=== PATIENT | male | born 1955 | race Caucasian/White ===

== ENCOUNTER 2024-10-15 16:28 | Outpatient (CLI) | payer MEDICARE, OTHER, SELFPAY ==
[2024-10-15 11:03] LABS: Abs Immature Grans 0.02 10^3/uL (0.0-0.06); Absolute Basophil Count 0.03 10^3/uL (0.0-0.2); Absolute Lymphocyte Count 0.82 10^3/uL (1.2-3.4); Absolute Monocyte Count 0.55 10^3/uL (0.1-0.8); Absolute Neutrophil Count 3.19 10^3/uL (1.2-6.7); Basophils % 0.6 %; Eosinophils % 6.1 %; HCT 42.3 % (40.0-50.0); HGB 13.8 g/dL (13.5-17.5); Immature Grans % 0.4 %; Lymphocytes % 16.7 %; MCH 30.2 pg (27.0-33.0); MCHC 32.6 % (32.0-36.0); MCV 93 fL (80-95); MPV 9.1 fL (8.0-11.0); Monocytes % 11.2 %; Platelet Count 223 10^3/uL (130-400); RBC 4.57 10^6/uL (4.36-5.78); RDW 13.6 % (11.8-14.1); WBC 4.91 10^3/uL (4.4-10.8)
[2024-10-15 11:26] LABS: ALT 20 U/L (16-63); AST 16 U/L (15-37); Albumin 3.7 g/dL (3.4-5.0); Alkaline Phosphatase 40 U/L (46-116); Anion Gap 4.5 mmol/L (3-11); BUN 18 mg/dL (7-18); Bilirubin, Total 0.36 mg/dL (0.2-1.0); CO2 30.5 mmol/L (21.0-32.0); CREATININE 1.4 mg/dL (0.70-1.30); Calcium 9.1 mg/dL (8.5-10.1); Chloride 106 mmol/L (98-107); Estimated GFR 54.07 (mL/min/1.73m2); FREE T4 0.67 ng/dL (0.76-1.46); Glucose 87 mg/dL (74-106); Potassium 4.9 mmol/L (3.5-5.1); Sodium 141 mmol/L (136-145); TSH 6.68 uIU/mL (0.36-3.74); Total Protein 7.4 g/dL (6.4-8.2)
== END 2024-10-15 16:29 | disposition home or self-care (01) ==
LOC: LBO 16:36
PROVIDERS: Visit Provider Internal Medicine Hematology
DX: C09.9 Malignant neoplasm of tonsil, unspecified (principal)
CPT/HCPCS: 36415; 80053; 84439; 84443; 85025

== ENCOUNTER 2024-11-05 01:59 | Outpatient (CLI) | payer MEDICARE, OTHER, SELFPAY ==
[2024-11-05 08:10] LABS: Abs Immature Grans 0.01 10^3/uL (0.0-0.06); Absolute Basophil Count 0.02 10^3/uL (0.0-0.2); Absolute Eosinophil Count 0.37 10^3/uL (0.0-0.7); Absolute Lymphocyte Count 0.67 10^3/uL (1.2-3.4); Absolute Monocyte Count 0.57 10^3/uL (0.1-0.8); Absolute Neutrophil Count 2.45 10^3/uL (1.2-6.7); Basophils % 0.5 %; HCT 40.6 % (40.0-50.0); HGB 13.3 g/dL (13.5-17.5); Immature Grans % 0.2 %; Lymphocytes % 16.4 %; MCH 30.2 pg (27.0-33.0); MCHC 32.8 % (32.0-36.0); MCV 92 fL (80-95); MPV 9.2 fL (8.0-11.0); Monocytes % 13.9 %; Platelet Count 184 10^3/uL (130-400); RDW 13.5 % (11.8-14.1); RDW-SD 46.3 fL; WBC 4.09 10^3/uL (4.4-10.8)
[2024-11-05 08:34] LABS: ALT 21 U/L (16-63); AST 14 U/L (15-37); Albumin 3.6 g/dL (3.4-5.0); Alkaline Phosphatase 47 U/L (46-116); Anion Gap 4.6 mmol/L (3-11); BUN 18 mg/dL (7-18); Bilirubin, Total 0.35 mg/dL (0.2-1.0); CO2 29.4 mmol/L (21.0-32.0); CREATININE 1.4 mg/dL (0.70-1.30); Calcium 9.5 mg/dL (8.5-10.1); Chloride 106 mmol/L (98-107); Estimated GFR 53.74 (mL/min/1.73m2); FREE T4 0.89 ng/dL (0.76-1.46); Glucose 99 mg/dL (74-106); Potassium 4.4 mmol/L (3.5-5.1); Sodium 140 mmol/L (136-145); TSH 7.78 uIU/mL (0.36-3.74); Total Protein 7.1 g/dL (6.4-8.2)
== END 2024-11-05 02:00 | disposition home or self-care (01) ==
LOC: LBO 01:59
PROVIDERS: Visit Provider Internal Medicine Hematology
DX: C09.9 Malignant neoplasm of tonsil, unspecified (principal)
CPT/HCPCS: 36415; 80053; 84439; 84443; 85025

== ENCOUNTER 2024-11-26 04:15 | Outpatient (CLI) | payer MEDICARE, OTHER, SELFPAY ==
[2024-11-26 08:02] LABS: Abs Immature Grans 0.01 10^3/uL (0.0-0.06); Absolute Basophil Count 0.03 10^3/uL (0.0-0.2); Absolute Lymphocyte Count 0.71 10^3/uL (1.2-3.4); Absolute Monocyte Count 0.53 10^3/uL (0.1-0.8); Absolute Neutrophil Count 2.58 10^3/uL (1.2-6.7); Basophils % 0.7 %; Eosinophils % 9.4 %; HCT 41.3 % (40.0-50.0); HGB 13.6 g/dL (13.5-17.5); Immature Grans % 0.2 %; Lymphocytes % 16.7 %; MCH 30.4 pg (27.0-33.0); MCHC 32.9 % (32.0-36.0); MCV 92 fL (80-95); MPV 9.3 fL (8.0-11.0); Monocytes % 12.4 %; Neutrophils % 60.6 %; Platelet Count 182 10^3/uL (130-400); RBC 4.47 10^6/uL (4.36-5.78); RDW 13.7 % (11.8-14.1); RDW-SD 46.7 fL; WBC 4.26 10^3/uL (4.4-10.8)
[2024-11-26 08:32] LABS: ALT 20 U/L (16-63); AST 17 U/L (15-37); Albumin 3.6 g/dL (3.4-5.0); Alkaline Phosphatase 47 U/L (46-116); Anion Gap 7.2 mmol/L (3-11); BUN 20 mg/dL (7-18); Bilirubin, Total 0.4 mg/dL (0.2-1.0); CO2 29.8 mmol/L (21.0-32.0); CREATININE 1.5 mg/dL (0.70-1.30); Calcium 9.4 mg/dL (8.5-10.1); Chloride 106 mmol/L (98-107); Estimated GFR 49.47 (mL/min/1.73m2); Glucose 105 mg/dL (74-106); Potassium 4.3 mmol/L (3.5-5.1); Sodium 143 mmol/L (136-145)
[2024-11-26 18:20] LABS: T4, Free 1.1 ng/dL (0.8-2.2)
== END 2024-11-26 04:16 | disposition home or self-care (01) ==
LOC: LBO 04:16
PROVIDERS: Visit Provider Internal Medicine Hematology
DX: C09.9 Malignant neoplasm of tonsil, unspecified (principal)
CPT/HCPCS: 36415; 80053; 84439; 84443; 85025

== ENCOUNTER 2024-12-06 01:08 | Outpatient (CLI) | payer MEDICARE, OTHER, SELFPAY ==
[2024-12-06 09:25] LABS: CREATININE 1.4 mg/dL (0.70-1.30); Estimated GFR 53.74 (mL/min/1.73m2)
[2024-12-06] MEDS: Omnipaque 350 MG/ML 100 ML BTL IJ (09:44)
[2024-12-06] MEDS: Normal Saline - Diluent 50 ML VIAL IJ (09:45)
--- NOTE | 2024-12-06 10:00 | DI.CT_ITS ---
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 Computer aided detection (CAD) was utilized. CONTRAST MATERIAL: Intravenous: Omnipaque 350 Contrast volume:structured data ml Oral: yes / no COMPARISON: CT CT CHEST from 07/04/[address] NECK from 07/04/[address] GUIDANCE from 07/26/2024 FINDINGS: Neck: Parotids/submandibular/thyroid gland: Normal. Lymphadenopathy: No enlarged lymph nodes. Carotids/Jugular: Mild atherosclerotic changes in the carotid arteries. Right jugular is unremarkab le. Stable smooth area of narrowing of the left jugular vein and stable proximal dilatation. Soft tissues: Stable area decreased attenuation in the left parapharyngeal space lateral to the uribe tid arteries anterior to the jugular vein. The epiglottis and vocal cords are within normal limits. Bones: No fracture. No lytic or blastic lesions. Chest: Tracheobronchial tree: Patent where visualized. Mediastinum and Marlene: No dominant adenopathy or fluid collection. Significant decrease in right hilar adenopathy. Pulmonary parenchyma: No consolidation or dominant measurable mass. Stable left apical scarring. Sta ble right lower lobe subpleural cyst. Mild basilar atelectasis/scarring. Resolution of previously n oted right-sided pulmonary nodules. Pleura: No effusion or pneumothorax. Heart/Aorta: Thoracic aorta non-dilated. The heart is not dilated. Severe coronary artery calcificati ons are seen. Pulmonary arteries: No evidence of emboli. Bones: No fracture. No lytic or blastic lesions. Degenerative changes and scoliosis. Soft tissues: Bilateral breast implants. Visualized upper abdomen: No acute findings. IMPRESSION: Neck:: Stable area of low density in left parapharyngeal space without evidence of discrete masses ma y represent post treatment changes. Stable the narrowing of the left jugular vein. No new findings. Chest: Resolution of previously noted right upper and lower lobe pulmonary nodules. Resolution of pr eviously noted right hilar adenopathy. No new findings. RADIATION DOSE DELIVERED: 608.26mGy.cm Total DLP DATA REPOSITORY: All CT scans at this facility are submitted to the National Radiology Data Registry (NRDR) Dose Index Registry (DIR) with the [employer] ([employer]). RADIATION OPTIMIZATION: All CT scans at this facility use at least one of these dose optimization te chniques: automated exposure control; mA and/or kV adjustment per patient size (includes targeted exa ms where dose is matched to clinical indication); or iterative reconstruction.
== END 2024-12-06 01:28 ==
PROVIDERS: Internal Medicine Hematology; PCP Family Medicine; Visit Provider Nurse Practitioner
DX: C09.9 Malignant neoplasm of tonsil, unspecified (principal)
CPT/HCPCS: 70491; 71260; 82565; J3490

== ENCOUNTER 2024-12-17 01:43 | Outpatient (CLI) | payer MEDICARE, OTHER, SELFPAY ==
[2024-12-17 08:36] LABS: Abs Immature Grans 0.02 10^3/uL (0.0-0.06); Absolute Basophil Count 0.03 10^3/uL (0.0-0.2); Absolute Lymphocyte Count 0.65 10^3/uL (1.2-3.4); Absolute Monocyte Count 0.59 10^3/uL (0.1-0.8); Absolute Neutrophil Count 2.75 10^3/uL (1.2-6.7); Basophils % 0.7 %; Eosinophils % 6.9 %; HCT 41.3 % (40.0-50.0); HGB 13.7 g/dL (13.5-17.5); Immature Grans % 0.5 %; MCH 30.5 pg (27.0-33.0); MCHC 33.2 % (32.0-36.0); MCV 92 fL (80-95); MPV 9.3 fL (8.0-11.0); Monocytes % 13.6 %; Neutrophils % 63.3 %; Platelet Count 186 10^3/uL (130-400); RBC 4.49 10^6/uL (4.36-5.78); RDW 13.9 % (11.8-14.1); RDW-SD 46.9 fL; WBC 4.34 10^3/uL (4.4-10.8)
[2024-12-17 09:01] LABS: ALT 22 U/L (16-63); AST 15 U/L (15-37); Albumin 3.6 g/dL (3.4-5.0); Alkaline Phosphatase 42 U/L (46-116); Anion Gap 5.4 mmol/L (3-11); BUN 15 mg/dL (7-18); Bilirubin, Total 0.5 mg/dL (0.2-1.0); CO2 30.6 mmol/L (21.0-32.0); CREATININE 1.5 mg/dL (0.70-1.30); Calcium 9.5 mg/dL (8.5-10.1); Chloride 105 mmol/L (98-107); Estimated GFR 49.47 (mL/min/1.73m2); FREE T4 1.02 ng/dL (0.76-1.46); Glucose 119 mg/dL (74-106); Potassium 4.4 mmol/L (3.5-5.1); Sodium 141 mmol/L (136-145); TSH 3.47 uIU/mL (0.36-3.74); Total Protein 7.2 g/dL (6.4-8.2)
== END 2024-12-17 01:44 | disposition home or self-care (01) ==
LOC: LBO 01:43
PROVIDERS: PCP Family Medicine; Visit Provider Internal Medicine Hematology
DX: C09.9 Malignant neoplasm of tonsil, unspecified (principal)
CPT/HCPCS: 36415; 80053; 84439; 84443; 85025

== ENCOUNTER 2025-01-07 03:21 | Outpatient (CLI) | payer MEDICARE, OTHER, SELFPAY ==
[2025-01-07 08:21] LABS: Abs Immature Grans 0.02 10^3/uL (0.0-0.06); Absolute Basophil Count 0.02 10^3/uL (0.0-0.2); Absolute Eosinophil Count 0.27 10^3/uL (0.0-0.7); Absolute Lymphocyte Count 0.57 10^3/uL (1.2-3.4); Absolute Monocyte Count 0.64 10^3/uL (0.1-0.8); Absolute Neutrophil Count 3.29 10^3/uL (1.2-6.7); Basophils % 0.4 %; Eosinophils % 5.6 %; HCT 41.8 % (40.0-50.0); HGB 13.8 g/dL (13.5-17.5); Immature Grans % 0.4 %; Lymphocytes % 11.9 %; MCH 30.7 pg (27.0-33.0); MCV 93 fL (80-95); MPV 9.3 fL (8.0-11.0); Monocytes % 13.3 %; Neutrophils % 68.4 %; Platelet Count 190 10^3/uL (130-400); RBC 4.49 10^6/uL (4.36-5.78); RDW 13.7 % (11.8-14.1); RDW-SD 46.8 fL; WBC 4.81 10^3/uL (4.4-10.8)
[2025-01-07 08:43] LABS: ALT 18 U/L (16-63); AST 15 U/L (15-37); Albumin 3.8 g/dL (3.4-5.0); Alkaline Phosphatase 44 U/L (46-116); BUN 12 mg/dL (7-18); Bilirubin, Total 0.3 mg/dL (0.2-1.0); CREATININE 1.4 mg/dL (0.70-1.30); Calcium 9.4 mg/dL (8.5-10.1); Chloride 105 mmol/L (98-107); Estimated GFR 53.74 (mL/min/1.73m2); FREE T4 0.92 ng/dL (0.76-1.46); Glucose 95 mg/dL (74-106); Potassium 4.4 mmol/L (3.5-5.1); Sodium 138 mmol/L (136-145); TSH 1.42 uIU/mL (0.36-3.74); Total Protein 7.4 g/dL (6.4-8.2)
== END 2025-01-07 03:22 | disposition home or self-care (01) ==
LOC: LBO 03:21
PROVIDERS: PCP Family Medicine; Visit Provider Internal Medicine Hematology
DX: C09.9 Malignant neoplasm of tonsil, unspecified (principal)
CPT/HCPCS: 36415; 80053; 84439; 84443; 85025

== ENCOUNTER 2025-01-28 04:28 | Outpatient (CLI) | payer MEDICARE, OTHER, SELFPAY ==
[2025-01-28 08:13] LABS: Abs Immature Grans 0.01 10^3/uL (0.0-0.06); Absolute Basophil Count 0.02 10^3/uL (0.0-0.2); Absolute Eosinophil Count 0.32 10^3/uL (0.0-0.7); Absolute Lymphocyte Count 0.68 10^3/uL (1.2-3.4); Absolute Monocyte Count 0.67 10^3/uL (0.1-0.8); Absolute Neutrophil Count 4.48 10^3/uL (1.2-6.7); Basophils % 0.3 %; Eosinophils % 5.2 %; HGB 13.9 g/dL (13.5-17.5); Immature Grans % 0.2 %; MCHC 33.1 % (32.0-36.0); MCV 91 fL (80-95); MPV 9.2 fL (8.0-11.0); Monocytes % 10.8 %; Neutrophils % 72.5 %; Platelet Count 197 10^3/uL (130-400); RBC 4.64 10^6/uL (4.36-5.78); RDW 13.4 % (11.8-14.1); RDW-SD 44.8 fL; WBC 6.18 10^3/uL (4.4-10.8)
[2025-01-28 08:37] LABS: ALT 15 U/L (16-63); AST 15 U/L (15-37); Albumin 3.6 g/dL (3.4-5.0); Alkaline Phosphatase 48 U/L (46-116); Anion Gap 3.4 mmol/L (3-11); BUN 18 mg/dL (7-18); Bilirubin, Total 0.3 mg/dL (0.2-1.0); CO2 29.6 mmol/L (21.0-32.0); CREATININE 1.4 mg/dL (0.70-1.30); Calcium 9.7 mg/dL (8.5-10.1); Chloride 105 mmol/L (98-107); Estimated GFR 53.74 (mL/min/1.73m2); FREE T4 0.98 ng/dL (0.76-1.46); Glucose 138 mg/dL (74-106); Potassium 4.3 mmol/L (3.5-5.1); Sodium 138 mmol/L (136-145); TSH 0.86 uIU/mL (0.36-3.74); Total Protein 7.3 g/dL (6.4-8.2)
== END 2025-01-28 04:29 | disposition home or self-care (01) ==
LOC: LBO 04:28
PROVIDERS: PCP Family Medicine; Visit Provider Internal Medicine Hematology
DX: C09.9 Malignant neoplasm of tonsil, unspecified (principal)
CPT/HCPCS: 36415; 80053; 84439; 84443; 85025

== ENCOUNTER 2025-02-18 04:09 | Outpatient (CLI) | payer MEDICARE, OTHER, SELFPAY ==
[2025-02-18 08:26] LABS: Abs Immature Grans 0.01 10^3/uL (0.0-0.06); Absolute Basophil Count 0.02 10^3/uL (0.0-0.2); Absolute Eosinophil Count 0.44 10^3/uL (0.0-0.7); Absolute Monocyte Count 0.67 10^3/uL (0.1-0.8); Basophils % 0.4 %; Eosinophils % 8.6 %; HCT 39.6 % (40.0-50.0); Immature Grans % 0.2 %; Lymphocytes % 13.6 %; MCH 30.1 pg (27.0-33.0); MCHC 32.8 % (32.0-36.0); MCV 92 fL (80-95); MPV 9.2 fL (8.0-11.0); Neutrophils % 64.2 %; Platelet Count 205 10^3/uL (130-400); RBC 4.32 10^6/uL (4.36-5.78); RDW 13.2 % (11.8-14.1); RDW-SD 44.9 fL; WBC 5.14 10^3/uL (4.4-10.8)
[2025-02-18 08:50] LABS: ALT 18 U/L (16-63); AST 18 U/L (15-37); Albumin 3.5 g/dL (3.4-5.0); Alkaline Phosphatase 53 U/L (46-116); Anion Gap 7.2 mmol/L (3-11); BUN 20 mg/dL (7-18); Bilirubin, Total 0.2 mg/dL (0.2-1.0); CO2 28.8 mmol/L (21.0-32.0); CREATININE 1.4 mg/dL (0.70-1.30); Calcium 9.2 mg/dL (8.5-10.1); Chloride 106 mmol/L (98-107); Estimated GFR 53.74 (mL/min/1.73m2); FREE T4 0.85 ng/dL (0.76-1.46); Glucose 106 mg/dL (74-106); Potassium 4.3 mmol/L (3.5-5.1); Sodium 142 mmol/L (136-145); TSH 2.73 uIU/mL (0.36-3.74); Total Protein 7.2 g/dL (6.4-8.2)
== END 2025-02-18 04:10 | disposition home or self-care (01) ==
PROVIDERS: PCP Family Medicine; Visit Provider Internal Medicine Hematology
DX: C09.9 Malignant neoplasm of tonsil, unspecified (principal)
CPT/HCPCS: 36415; 80053; 84439; 84443; 85025

== ENCOUNTER 2025-03-11 02:57 | Outpatient (CLI) | payer MEDICARE, OTHER, SELFPAY ==
[2025-03-11 08:20] LABS: Abs Immature Grans 0.01 10^3/uL (0.0-0.06); Absolute Basophil Count 0.02 10^3/uL (0.0-0.2); Absolute Eosinophil Count 0.54 10^3/uL (0.0-0.7); Absolute Lymphocyte Count 0.75 10^3/uL (1.2-3.4); Absolute Monocyte Count 0.81 10^3/uL (0.1-0.8); Absolute Neutrophil Count 3.63 10^3/uL (1.2-6.7); Basophils % 0.3 %; Eosinophils % 9.4 %; HCT 39.5 % (40.0-50.0); Immature Grans % 0.2 %; MCH 30.2 pg (27.0-33.0); MCHC 32.9 % (32.0-36.0); MCV 92 fL (80-95); MPV 9.4 fL (8.0-11.0); Monocytes % 14.1 %; Platelet Count 193 10^3/uL (130-400); RBC 4.31 10^6/uL (4.36-5.78); RDW 13.2 % (11.8-14.1); RDW-SD 45.2 fL; WBC 5.76 10^3/uL (4.4-10.8)
[2025-03-11 08:48] LABS: ALT 20 U/L (16-63); AST 16 U/L (15-37); Albumin 3.5 g/dL (3.4-5.0); Alkaline Phosphatase 56 U/L (46-116); BUN 25 mg/dL (7-18); Bilirubin, Total 0.3 mg/dL (0.2-1.0); CREATININE 1.6 mg/dL (0.70-1.30); Calcium 9.1 mg/dL (8.5-10.1); Chloride 105 mmol/L (98-107); Estimated GFR 45.78 (mL/min/1.73m2); FREE T4 0.95 ng/dL (0.76-1.46); Glucose 92 mg/dL (74-106); Potassium 4.2 mmol/L (3.5-5.1); Sodium 142 mmol/L (136-145); TSH 0.88 uIU/mL (0.36-3.74); Total Protein 7.1 g/dL (6.4-8.2)
== END 2025-03-11 02:58 | disposition home or self-care (01) ==
PROVIDERS: PCP Family Medicine; Visit Provider Internal Medicine Hematology
DX: C09.9 Malignant neoplasm of tonsil, unspecified (principal)
CPT/HCPCS: 36415; 80053; 84439; 84443; 85025

== ENCOUNTER 2025-03-29 00:22 | Outpatient (CLI) | payer MEDICARE, OTHER, SELFPAY ==
--- NOTE | 2025-03-29 | DI.CT_ITS ---
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 COMPARISON: CT CT NECK CHEST W from 12/06/2024 TECHNIQUE: FINDINGS: CT CHEST WITHOUT: LUNGS: There is mild subpleural infiltrate in the posterior basal segment of the right lower lobe. Opposite-left lung is clear. There are no pleural effusions. No ominous pulmonary nodules. MEDIASTINUM: There is no obvious hilar nor mediastinal adenopathy. Visualized thyroid unremarkable. No supraclavicular adenopathy. No axillary adenopathy evident. CARDIAC: Heart size is upper normal. There is no pericardial effusion. Caliber of thoracic aorta is within normal limits. OSSEOUS: No fractures. No significant osseous lesions. OTHER: There are bilateral prepectoral breast implants. CT SOFT TISSUES NECK WITHOUT: VISUALIZED PARANASAL SINUSES: Unremarkable. NASOPHARYNX: Unremarkable ORODENTAL: Unremarkable. OROPHARYNX: Unremarkable. No obvious masses evident. No obvious asymmetry of the level of the tonsils. Uvula is midline. HYPOPHARYNX: Unremarkable. Valleculae and epiglottis and aryepiglottic folds appear normal. VOCAL CORDS: Unremarkable. No masses evident. Subglottic airway appears unremarkable. THYROID GLAND: Unremarkable. Normal size and no obvious nodules. SALIVARY GLANDS: Unremarkable. No significant findings in the parotid and submandibular glands. LYMPH NODES: There is no adenopathy evident in the neck and supraclavicular regions. OTHER: VISUALIZED LUNG APICES: No significant focal findings. IMPRESSION: 1. No significant focal findings on this non few CT scan of the soft tissues of the neck 2. Mild subpleural increased markings in the right lower lobe posterior basal segment. No large infiltrates and no pleural effusions. 3. No evidence of metastatic lung nodules nor obvious intrathoracic adenopathy. RADIATION DOSE DELIVERED: 656.64mGy.cm Total DLP DATA REPOSITORY: All CT scans at this facility are submitted to the National Radiology Data Registry (NRDR) Dose Index Registry (DIR) with the [employer] ([employer]). RADIATION OPTIMIZATION: All CT scans at this facility use at least one of these dose optimization techniques: automated exposure control; mA and/or kV adjustment per patient size (includes targeted exams where dose is matched to clinical indication); or iterative reconstruction.
== END 2025-03-29 00:42 ==
LOC: DI 00:22
PROVIDERS: PCP Family Medicine; Visit Provider Nurse Practitioner
DX: C09.9 Malignant neoplasm of tonsil, unspecified (principal); E07.89 Other specified disorders of thyroid; D64.9 Anemia, unspecified; Z12.2 Encounter for screening for malignant neoplasm of respiratory organs
CPT/HCPCS: 71271; 70490

== ENCOUNTER 2025-04-01 03:01 | Outpatient (CLI) | payer MEDICARE, OTHER, SELFPAY ==
[2025-04-01 13:31] LABS: Abs Immature Grans 0.01 10^3/uL (0.0-0.06); HCT 41.0 % (40.0-50.0); HGB 13.7 g/dL (13.5-17.5); Immature Grans % 0.2 %; MCH 30.2 pg (27.0-33.0); MCHC 33.4 % (32.0-36.0); MCV 90 fL (80-95); MPV 9.5 fL (8.0-11.0); Platelet Count 208 10^3/uL (130-400); RBC 4.54 10^6/uL (4.36-5.78); RDW 13.7 % (11.8-14.1); RDW-SD 45.6 fL; WBC 6.35 10^3/uL (4.4-10.8)
[2025-04-01 14:10] LABS: ALT 20 U/L (16-63); AST 14 U/L (15-37); Albumin 3.6 g/dL (3.4-5.0); Alkaline Phosphatase 54 U/L (46-116); Anion Gap 8.5 mmol/L (3-11); BUN 17 mg/dL (7-18); Bilirubin, Total 0.3 mg/dL (0.2-1.0); CO2 28.5 mmol/L (21.0-32.0); Calcium 9.3 mg/dL (8.5-10.1); Chloride 104 mmol/L (98-107); Estimated GFR 53.74 (mL/min/1.73m2); Glucose 96 mg/dL (74-106); Potassium 4.6 mmol/L (3.5-5.1); Sodium 141 mmol/L (136-145); TSH 1.57 uIU/mL (0.36-3.74); Total Protein 7.4 g/dL (6.4-8.2)
== END 2025-04-01 03:02 | disposition home or self-care (01) ==
LOC: LBO 03:01
PROVIDERS: PCP Family Medicine; Visit Provider Internal Medicine Hematology
DX: C09.0 Malignant neoplasm of tonsillar fossa (principal)
CPT/HCPCS: 36415; 80053; 84439; 84443; 85025

== ENCOUNTER 2025-04-22 03:25 | Outpatient (CLI) | payer MEDICARE, OTHER, SELFPAY ==
[2025-04-22 09:23] LABS: Abs Immature Grans 0.01 10^3/uL (0.0-0.06); HCT 40.2 % (40.0-50.0); HGB 13.3 g/dL (13.5-17.5); Immature Grans % 0.2 %; MCH 29.9 pg (27.0-33.0); MCHC 33.1 % (32.0-36.0); MCV 90 fL (80-95); MPV 9.6 fL (8.0-11.0); Platelet Count 208 10^3/uL (130-400); RBC 4.45 10^6/uL (4.36-5.78); RDW 13.6 % (11.8-14.1); RDW-SD 45.1 fL; WBC 5.85 10^3/uL (4.4-10.8)
[2025-04-22 10:16] LABS: ALT 19 U/L (16-63); AST 15 U/L (15-37); Albumin 3.8 g/dL (3.4-5.0); Alkaline Phosphatase 54 U/L (46-116); Anion Gap 6.3 mmol/L (3-11); BUN 18 mg/dL (7-18); Bilirubin, Total 0.4 mg/dL (0.2-1.0); CO2 28.7 mmol/L (21.0-32.0); Calcium 9.2 mg/dL (8.5-10.1); Chloride 102 mmol/L (98-107); Estimated GFR 53.74 (mL/min/1.73m2); Glucose 99 mg/dL (74-106); Potassium 4.7 mmol/L (3.5-5.1); Sodium 137 mmol/L (136-145); TSH 0.99 uIU/mL (0.36-3.74); Total Protein 7.6 g/dL (6.4-8.2)
== END 2025-04-22 03:26 | disposition home or self-care (01) ==
LOC: LBO 03:25
PROVIDERS: PCP Family Medicine; Visit Provider Internal Medicine Hematology
DX: C09.9 Malignant neoplasm of tonsil, unspecified (principal)
CPT/HCPCS: 36415; 80053; 84439; 84443; 85025

== ENCOUNTER 2025-05-13 04:39 | Outpatient (CLI) | payer MEDICARE, OTHER, SELFPAY ==
[2025-05-13 08:59] LABS: Abs Immature Grans 0.02 10^3/uL (0.0-0.06); HCT 40.1 % (40.0-50.0); HGB 13.4 g/dL (13.5-17.5); Immature Grans % 0.3 %; MCH 30.2 pg (27.0-33.0); MCHC 33.4 % (32.0-36.0); MCV 90 fL (80-95); MPV 9.3 fL (8.0-11.0); Platelet Count 214 10^3/uL (130-400); RBC 4.44 10^6/uL (4.36-5.78); RDW 13.7 % (11.8-14.1); RDW-SD 45.3 fL; WBC 6.27 10^3/uL (4.4-10.8)
[2025-05-13 09:25] LABS: ALT 16 U/L (16-63); AST 14 U/L (15-37); Albumin 3.8 g/dL (3.4-5.0); Alkaline Phosphatase 54 U/L (46-116); Anion Gap 5.7 mmol/L (3-11); BUN 17 mg/dL (7-18); Bilirubin, Total 0.3 mg/dL (0.2-1.0); CO2 29.3 mmol/L (21.0-32.0); Calcium 9.6 mg/dL (8.5-10.1); Chloride 104 mmol/L (98-107); Estimated GFR 45.78 (mL/min/1.73m2); Glucose 123 mg/dL (74-106); Potassium 4.3 mmol/L (3.5-5.1); Sodium 139 mmol/L (136-145); TSH 2.88 uIU/mL (0.36-3.74); Total Protein 7.7 g/dL (6.4-8.2)
== END 2025-05-13 04:40 | disposition home or self-care (01) ==
LOC: LBO 04:39
PROVIDERS: PCP Family Medicine; Visit Provider Internal Medicine Hematology
DX: C09.9 Malignant neoplasm of tonsil, unspecified (principal)
CPT/HCPCS: 36415; 80053; 84439; 84443; 85025

== ENCOUNTER 2025-06-03 01:51 | Outpatient (CLI) | payer MEDICARE, OTHER, SELFPAY ==
[2025-06-03 09:06] LABS: ALT 17 U/L (16-63); AST 15 U/L (15-37); Albumin 3.7 g/dL (3.4-5.0); Alkaline Phosphatase 52 U/L (46-116); Anion Gap 8.6 mmol/L (3-11); BUN 16 mg/dL (7-18); Bilirubin, Total 0.3 mg/dL (0.2-1.0); CO2 27.4 mmol/L (21.0-32.0); Calcium 9.3 mg/dL (8.5-10.1); Chloride 103 mmol/L (98-107); Estimated GFR 49.47 (mL/min/1.73m2); Glucose 132 mg/dL (74-106); Potassium 4.2 mmol/L (3.5-5.1); Sodium 139 mmol/L (136-145); TSH 2.36 uIU/mL (0.36-3.74); Total Protein 7.3 g/dL (6.4-8.2)
[2025-06-03 09:55] LABS: Abs Immature Grans 0.02 10^3/uL (0.0-0.06); HCT 39.3 % (40.0-50.0); HGB 13.1 g/dL (13.5-17.5); Immature Grans % 0.4 %; MCH 30.3 pg (27.0-33.0); MCHC 33.3 % (32.0-36.0); MCV 91 fL (80-95); MPV 9.6 fL (8.0-11.0); Platelet Count 255 10^3/uL (130-400); RBC 4.33 10^6/uL (4.36-5.78); RDW 13.6 % (11.8-14.1); RDW-SD 45.7 fL; WBC 4.78 10^3/uL (4.4-10.8)
== END 2025-06-03 01:52 | disposition home or self-care (01) ==
PROVIDERS: PCP Family Medicine; Visit Provider Internal Medicine Hematology
DX: C09.9 Malignant neoplasm of tonsil, unspecified (principal)
CPT/HCPCS: 36415; 80053; 84439; 84443; 85025

== ENCOUNTER 2025-06-06 04:20 | Outpatient (CLI) | payer MEDICARE, OTHER, SELFPAY ==
--- NOTE | 2025-06-06 | DI.CT_ITS ---
Exam(s) CT CHEST WO EXAM: CT CHEST WO CLINICAL HISTORY: TONSILLAR CA C09.9 HYPOTHYROIDISM INSENSITIVITY TI TSH E07.89 CHRONIC COUGH. TECHNIQUE: Imaging protocol: Axial computed tomography images were obtained and coronal and sagittal reformatted images were created and reviewed. Lung Computer Aided Detection (CAD) was utilized. CT CT GUIDANCE from 07/26/[address] NECK CHEST W from 12/06/[address] NECK CHEST WO from 03/29/2025 FINDINGS: Tracheobronchial tree: Patent where visualized. No bronchiectasis is present. Pulmonary parenchyma: No consolidation or dominant measurable mass. There is mild pulmonary fibrosis. Mediastinum and Marlene: No dominant adenopathy or fluid collection. The esophagus is unremarkable.There is a small hiatal hernia. Thyroid gland: Unremarkable. Pleura: No effusion or pneumothorax. Heart: The heart is not dilated. There is 3 vessel coronary artery calcification. No pericardial effusion. Aorta: Thoracic aorta non-dilated. Atherosclerotic calcification is present. Upper abdomen: Unremarkable. Lymph nodes: Within normal limits. Soft tissues: There are bilateral prepectoral breast implants. Bones:Within normal limits for the patient's age. Arthritic changes are seen in the shoulders bilaterally. IMPRESSION: 1. No evidence of thoracic metastatic disease. 2. No acute pulmonary process. RADIATION DOSE DELIVERED: 234.06mGy.cm Total DLP 234.06mGy.cm Total DLP DATA REPOSITORY: All CT scans at this facility are submitted to the National Radiology Data Registry (NRDR) Dose Index Registry (DIR) with the [employer] ([employer]). RADIATION OPTIMIZATION: All CT scans at this facility use at least one of these dose optimization techniques: automated exposure control; mA and/or kV adjustment per patient size (includes targeted exams where dose is matched to clinical indication); or iterative reconstruction.
== END 2025-06-06 04:40 ==
LOC: DI 04:20
PROVIDERS: PCP Family Medicine; Visit Provider Nurse Practitioner
DX: C09.9 Malignant neoplasm of tonsil, unspecified (principal); E07.89 Other specified disorders of thyroid
CPT/HCPCS: 71250

== ENCOUNTER 2025-06-24 03:25 | Outpatient (CLI) | payer MEDICARE, OTHER, SELFPAY ==
[2025-06-24 08:38] LABS: Abs Immature Grans 0.03 10^3/uL (0.0-0.06); HCT 38.4 % (40.0-50.0); HGB 12.5 g/dL (13.5-17.5); Immature Grans % 0.5 %; MCH 29.5 pg (27.0-33.0); MCHC 32.6 % (32.0-36.0); MCV 91 fL (80-95); MPV 9.1 fL (8.0-11.0); Platelet Count 212 10^3/uL (130-400); RBC 4.24 10^6/uL (4.36-5.78); RDW 13.6 % (11.8-14.1); RDW-SD 45.4 fL; WBC 6.26 10^3/uL (4.4-10.8)
[2025-06-24 09:06] LABS: ALT 15 U/L (16-63); AST 13 U/L (15-37); Albumin 3.6 g/dL (3.4-5.0); Alkaline Phosphatase 43 U/L (46-116); Anion Gap 8.9 mmol/L (3-11); BUN 13 mg/dL (7-18); Bilirubin, Total 0.4 mg/dL (0.2-1.0); CO2 27.1 mmol/L (21.0-32.0); Calcium 9.1 mg/dL (8.5-10.1); Chloride 105 mmol/L (98-107); Estimated GFR 58.73 (mL/min/1.73m2); Glucose 121 mg/dL (74-106); Potassium 3.8 mmol/L (3.5-5.1); Sodium 141 mmol/L (136-145); TSH 1.79 uIU/mL (0.36-3.74); Total Protein 7.0 g/dL (6.4-8.2)
== END 2025-06-24 03:26 | disposition home or self-care (01) ==
LOC: LBO 03:25
PROVIDERS: PCP Family Medicine; Visit Provider Internal Medicine Hematology
DX: C09.9 Malignant neoplasm of tonsil, unspecified (principal)
CPT/HCPCS: 36415; 80053; 84439; 84443; 85025

== ENCOUNTER 2025-08-05 02:05 | Outpatient (CLI) | payer MEDICARE, OTHER, SELFPAY ==
[2025-08-05 08:09] LABS: Abs Immature Grans 0.02 10^3/uL (0.0-0.06); HCT 40.3 % (40.0-50.0); HGB 13.4 g/dL (13.5-17.5); Immature Grans % 0.3 %; MCH 29.8 pg (27.0-33.0); MCHC 33.3 % (32.0-36.0); MCV 90 fL (80-95); MPV 9.4 fL (8.0-11.0); Platelet Count 209 10^3/uL (130-400); RBC 4.50 10^6/uL (4.36-5.78); RDW 13.4 % (11.8-14.1); RDW-SD 44.3 fL; WBC 5.97 10^3/uL (4.4-10.8)
[2025-08-05 10:49] LABS: ALT 18 U/L (10-49); AST 24 U/L (<34); Albumin 4.2 g/dL (3.4-5.0); Alkaline Phosphatase 40 U/L (46-116); Anion Gap 10.9 mmol/L (3-11); BUN 13 mg/dL (9-23); Bilirubin, Total 0.40 mg/dL (0.2-1.2); CO2 24.1 mmol/L (20.0-31.0); Calcium 9.5 mg/dL (8.3-10.6); Chloride 105 mmol/L (98-107); Glucose 108 mg/dL (74-106); Potassium 4.1 mmol/L (3.5-5.1); Sodium 140 mmol/L (136-145); Total Protein 7.1 g/dL (5.7-8.2)
[2025-08-05 10:52] LABS: TSH 2.30 uIU/mL (0.55-4.78)
== END 2025-08-05 02:06 | disposition home or self-care (01) ==
LOC: LBO 02:05
PROVIDERS: PCP Family Medicine; Visit Provider Internal Medicine Hematology
DX: C09.9 Malignant neoplasm of tonsil, unspecified (principal)
CPT/HCPCS: 36415; 80053; 84439; 84443; 85025

== ENCOUNTER 2025-09-16 00:42 | Outpatient (CLI) | payer MEDICARE, OTHER, SELFPAY ==
[2025-09-16 08:33] LABS: Abs Immature Grans 0.01 10^3/uL (0.0-0.06); HCT 40.0 % (40.0-50.0); HGB 13.4 g/dL (13.5-17.5); Immature Grans % 0.2 %; MCH 29.8 pg (27.0-33.0); MCHC 33.5 % (32.0-36.0); MCV 89 fL (80-95); MPV 9.2 fL (8.0-11.0); Platelet Count 220 10^3/uL (130-400); RBC 4.49 10^6/uL (4.36-5.78); RDW 13.2 % (11.8-14.1); RDW-SD 43.4 fL; WBC 4.86 10^3/uL (4.4-10.8)
[2025-09-16 08:58] LABS: ALT 12 U/L (10-49); AST 18 U/L (<34); Albumin 4.4 g/dL (3.2-5.0); Alkaline Phosphatase 46 U/L (46-116); Anion Gap 7 mmol/L (3-11); BUN 20 mg/dL (9-23); Bilirubin, Total 0.4 mg/dL (0.2-1.2); CO2 26.0 mmol/L (20.0-31.0); Calcium 9.4 mg/dL (8.3-10.6); Chloride 106 mmol/L (98-107); Glucose 94 mg/dL (74-106); Potassium 4.1 mmol/L (3.5-5.1); Sodium 139 mmol/L (136-145); Total Protein 7.4 g/dL (5.7-8.2)
[2025-09-16 08:59] LABS: TSH 1.07 uIU/mL (0.55-4.78)
== END 2025-09-16 00:43 | disposition home or self-care (01) ==
LOC: LBO 00:43
PROVIDERS: PCP Family Medicine; Visit Provider Internal Medicine Hematology
DX: C09.9 Malignant neoplasm of tonsil, unspecified (principal)
CPT/HCPCS: 36415; 80053; 84439; 84443; 85025